=== PATIENT | male | born 1995 | race African-American/Black ===

== ENCOUNTER 2022-10-23 10:26 | Emergency (ER) | payer MEDICAID, SELFPAY ==
[2022-10-23 10:28] VITALS: BP 110/75; PULSE 81; RESP 14; TEMP 36.7; O2SAT 100; BMI 17.7
[2022-10-23] MEDS: Ondansetron ODT 4 MG Tablet PO (10:54)
[2022-10-23] MEDS: Mag Hydrox/Al Hydrox/Simeth 30 ML UDC PO (10:54)
--- NOTE | 2022-10-23 12:53 | ED.VIS.GI ---
HPI HPI - GI History of Present Illness Chief Complaint: Abd Pain Narrative Narrative: 26-year-old male presenting with epigastric pain, nausea, vomiting. He states this is present for a couple of days. He notes that prior to the onset of this he ate some [employer] station pizza. He has had a fever, chills, body aches. No cough or shortness of breath. No chest pain. He has had a little bit of diarrhea but no black or bloody stools or black or bloody emesis. He states he does not drink alcohol. PFSH PFS Home Medications omeprazole 20 mg capsule,delayed release 20 mg PO DAILY #30 caps 10/23/22 [Rx Last Taken Unknown] ondansetron 4 mg disintegrating tablet 4 mg PO Q8H PRN nausea and vomiting #10 tabs 10/23/22 [Rx Last Taken Unknown] sucralfate 100 mg/mL oral suspension (Carafate) 10 ml PO BID PRN epigastric pain #200 mL 10/23/22 [Rx Last Taken Unknown] Allergy/AdvReac Type Severity Reaction Status Date / Time No Known Allergies Allergy Verified 10/23/22 10:28 Social History Smoking Status: Never smoker ROS ROS ED Constitutional Constitutional ED: Denies chills, fever(s) or sweats Eyes Eyes: Denies blurry vision or change in vision ENT ENT ED: Denies ear pain or sore throat Cardiovascular Cardiovascular: Denies chest pain, palpitations or racing heartbeat Respiratory/Chest Respiratory/Chest: Denies cough, dyspnea or sputum Gastrointestinal Gastrointestinal: Reports abdominal pain, nausea and vomiting; Denies constipation or diarrhea Genitourinary Genitourinary ED: Denies dysuria, hematuria or urinary frequency Musculoskeletal Musculoskeletal: Denies arthralgias, myalgias or neck pain Integumentary Denies abscess, Abrasions or rash Neurologic Neurologic: Denies headache(s), paresthesias or weakness Psychiatric Psychiatric: Denies anxiety, depression, suicidal ideation or suicidal thoughts Endocrine Endocrinology: Denies polydipsia or polyuria EXAM Physical Exam Const Vital Signs: 10/23/22 10:28 Temperature 98.1 F Temperature Source Temporal Pulse Rate 81 Respiratory Rate 14 Blood Pressure 110/75 Blood Pressure Mean 86 Pulse Ox 100 Oxygen Delivery Method Room Air Positive well nourished General Appearance ED: NAD; Negative for pallor HEENT Reports moist mucous membranes normocephalic Eyes PERRL and EOMs intact bilaterally General Eye ED: Negative for pale conjunctiva or scleral icterus Neck no lymphadenopathy Resp normal respiratory effort Auscultation: Negative for rales, rhonchi or wheezes Cardio regular rate and regular rhythm GI Palpation: tender epigastric Neuro CN's II-XII intact bilaterally Sensorium / Orientation: alert Psych mental status grossly normal Skin no wounds General Skin Exam: Negative for jaundice or pallor MDM MDM MDM Narrative Medical decision making narrative: Patient presenting with nausea, vomiting, epigastric discomfort. He is not in severe pain. He has no history of GERD that he knows of. He reports that the pain started after eating some gas station pizza. Patient was given oral Zofran and a GI cocktail and on reevaluation he felt very much improved. I do not think he needs blood work or imaging. I will start him on a PPI and Carafate as needed. He is given Zofran also. He was given follow-up with GI. Impression: 1. Acute gastritis Lab Data Attestation: I reviewed the patient's lab results. Discharge Plan Triage Chief Complaint: Abd Pain ED Provider: Stef Garcia Dx/Rx/DC Orders Instructions: ED Gastritis Ulcer No Abx Prescriptions: New omeprazole 20 mg capsule,delayed release(DR/EC) 20 mg PO DAILY Qty: 30 0RF ondansetron 4 mg tablet,disintegrating 4 mg PO Q8H PRN (Reason: nausea and vomiting) Qty: 10 0RF sucralfate [Carafate] 100 mg/mL suspension 10 ml PO BID PRN (Reason: epigastric pain) Qty: 200 0RF Primary Care Provider: Care Physician,No Primary Referrals: Friend,Doug, DO [Med Staff - Active Staff] - 3-5 Days Care Physician,No Primary [Primary Care Provider] - Disposition Disposition: Home, Self Care
== END 2022-10-23 12:57 | disposition home or self-care (01) ==
PROVIDERS: Emergency Provider Student in an Organized Health Care Education/Training Program; Visit Provider Student in an Organized Health Care Education/Training Program
DX: K29.00 Acute gastritis without bleeding (principal); R50.9 Fever, unspecified; R10.13 Epigastric pain
CPT/HCPCS: 99283